=== PATIENT | male | born 1990 | race African-American/Black ===

== ENCOUNTER 2021-02-14 14:37 | Emergency (ER) | payer OTHER ==
[~2021-02-14] VITALS: Ht 180.3 cm; Wt 72.6 kg
[~2021-02-14 14:37] MED LIST: ADVAIR 250-501 EACH IH; ALBUTEROL INH INH; BACTRIM DS TAB1 EACH PO; BLOOD PRESSURE MED; MEDROLDOSEPACK PO; PREDNISONE 20 M20 MG PO; PROVENTIL IN; SINGULAIR 10 MG10 M1 PO
[2021-02-14 16:22] LABS: ABSOLUTE NEUTROPHILS 7.6 thou/uL (1.4-8.2); BASOPHILS 0.7 % (0.0-2.0); HEMATOCRIT 30.4 % (42.0-52.0); HEMOGLOBIN 10.1 gm/dL (14.0-18.0); LYMPHOCYTES 6.6 % (24.0-44.0); MCH 30.5 pg (26.0-34.0); MCHC 33.4 g/dL (28.0-37.0); MCV 91.4 fL (80.0-100.0); MONOCYTES 9.5 % (1.0-8.0); PLATELET COUNT 339 thou/uL (150-400); POLYS 81.2 % (36.0-66.0); RBC 3.32 mil/uL (4.50-6.00); RDW 15.5 % (10.5-14.5); WBC 9.4 thou/uL (4.0-11.0)
[2021-02-14 16:29] LABS: ANION GAP 9 mmol/L (7-16); BUN 11 mg/dL (7-18); CALCIUM 9.2 mg/dL (8.5-10.1); CHLORIDE 98 mmol/L (98-107); CO2 32 mmol/L (21-32); CREATININE 5.8 mg/dL (0.7-1.3); GLUCOSE 78 mg/dL (74-106); POTASSIUM 3.9 mmol/L (3.5-5.1); SODIUM 139 mmol/L (136-145)
[2021-02-14 16:38] LABS: TROPONIN-I <0.06 ng/mL (<0.06)
[2021-02-14] MEDS ORDERED: ZITHROMAX250 MG PO (17:38)
[2021-02-14 17:51] VITALS: BP 145/86
--- NOTE | 2021-02-16 08:36 | EKG ---
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: [place] : 1990 Requested By: Karin Eid Order Number: [id number] MD: Donis Campbell Measurements Intervals [place] Rate: 104 P: 63 [place]: 121 QRS: 72 QRSD: 85 T: 50 QT: 316 QTc: 416 Interpretive Statements Sinus tachycardia Otherwise no significant abnormality Compared to ECG 04/04/2014 14:33:29 Repolarization abnormality is no longer present Electronically Signed On 02-16-2021 8:36:18 CDT by Donis Campbell [email or web address] <ELECTRONICALLY SIGNED> By: Donis Campbell MD, [facility] 02/16/21 0836 [id number] Donis Campbell MD, FACC /EPI
== END 2021-02-14 17:51 | disposition home or self-care (01) ==
LOC: ER 14:37
PROVIDERS: Emergency Medicine
DX: J45.909 Unspecified asthma, uncomplicated (principal); Z20.822 Contact with and (suspected) exposure to COVID-19; I12.0 Hypertensive chronic kidney disease with stage 5 chronic kidney disease or end stage renal disease; N18.6 End stage renal disease; Z99.2 Dependence on renal dialysis; Z79.899 Other long term (current) drug therapy; Z91.013 Allergy to seafood